=== PATIENT | female | born 1955 | race Caucasian/White ===

== ENCOUNTER 2017-07-05 12:11 | Emergency (ER) | payer MEDICARE, OTHER ==
[~2017-07-05 12:11] MED LIST: ASPIR 8181 MG PO; BENZONATATE100 MG PO; CLOPIDOGREL75 MG PO; LOSARTAN POTASS50 MG PO; MEGESTROL400 MG/10 PO; METOPROLOL SUCC25 MG PO; NEPHRO-VITE TA0.8 MG PO; SENSIPAR30 MG PO; WARFARIN SODIU2.5 MG PO; ZOLPIDEM TARTRAT5 MG PO
[2017-07-05] MEDS ORDERED: EPOGEN10000 UNIT INJ (12:38)
[2017-07-05] MEDS ORDERED: HECTOROL2 MCG/1 ML IV (12:39)
[2017-07-05] MEDS ORDERED: VENOFER50 MG/2.5 IV (12:40)
[2017-07-05] MEDS ORDERED: OMEPRAZOLE20 MG PO (12:42)
[2017-07-05] MEDS ORDERED: ACID CONTROL150 MG PO (12:43)
[2017-07-05] MEDS ORDERED: SENSIPAR30 MG PO (12:44)
--- NOTE | 2017-07-05 19:36 | EKG ---
[facility] [address] [place] [address] Signed Sinus rhythm with premature supraventricular complexes and with occasional premature ventricular complexes Nonspecific ST and T wave abnormality Abnormal ECG No previous ECGs available Confirmed by YUVAL ARROYO MD ([id number]) on 07/05/2017 7:36:36 PM Electronically Signed By: YUVAL ARROYO MD 07/05/17 1936 PATIENT NAME: MATI LEAVITT Electrocardiogram DATE OF : 51 PHYSICIAN: YUVAL ARROYO MD REPORT #: [id number] REPORT IS CONFIDENTIAL AND NOT TO BE RELEASED WITHOUT AUTHORIZATION
== END 2017-07-05 17:27 | disposition short-term general hospital (02) ==
LOC: ED 12:11
DX: E11.22 Type 2 diabetes mellitus with diabetic chronic kidney disease (principal); I50.9 Heart failure, unspecified; N18.9 Chronic kidney disease, unspecified; E78.5 Hyperlipidemia, unspecified; I25.2 Old myocardial infarction; Z95.0 Presence of cardiac pacemaker; Z99.2 Dependence on renal dialysis; Z90.49 Acquired absence of other specified parts of digestive tract; Z88.8 Allergy status to other drugs, medicaments and biological substances; Z88.2 Allergy status to sulfonamides; Z79.899 Other long term (current) drug therapy; Z79.01 Long term (current) use of anticoagulants
CPT/HCPCS: 36415; 71010; 80053; 83880; 84484; 85025; 93005; 93010; 99285

== ENCOUNTER 2017-09-25 09:25 | Emergency (ER) | payer MEDICARE, OTHER ==
[~2017-09-25] VITALS: Ht 160 cm; Wt 92.3 kg
--- OUTSIDE RECORDS SUMMARY | ~2017-09-25 | XMS | Clinical Summary ---
Demographics + + + | Address | [address] | | | [place] [address] | + + + | Home Phone | | + + + | Preferred Language | Unknown | + + + | Marital Status | | + + + | Pentecostalism Affiliation | CHR | + + + | Race | White | + + + | Ethnic Group | Not or | + + + Author + + + | Author | [facility] | + + + | Organization | [facility] | + + + | Address | Unknown | + + + | Phone | Unavailable | + + + Support + + +---------+ + | Name | Relationship | Address | Phone | + + +---------+ + | EDGARD ISBELL | ECON | Unknown | | + + +---------+ + Care Team Providers + +------+ + | Care Ward Supervisor Name | Role | Phone | + +------+ + PP | Unavailable | + +------+ + Source Comments [facility] is fully live on [facility] and [facility] Allergies + + + + + + | Active Allergy | Reactions | Severity | Noted | Comments | | | | | Date | | + + + + + + | Adhesive Tape | Rash | | 06/17/20 | Can't have | | | | | 13 | bandaids, but paper | | | | | | tape is ok | + + + + + + | Cefazolin | Dyspnea | High | 06/21/20 | | | | | | 13 | | + + + + + + | Irbesartan-Hydrochlo | Rash | | 06/17/20 | | | rothiazide | | | 13 | | + + + + + + | Captopril | Rash | | 11/07/19 | | | | | | 01 | | + + + + + + | Ciprofloxacin | Rash | | 11/07/19 | | | | | | 01 | | + + + + + + | Rofecoxib | Rash | | 05/30/20 | | | | | | 01 | | + + + + + + | Sulfamethoxazole-Tri | Pruritus, Rash | | 06/17/20 | | | methoprim | | | 13 | | + + + + + + | Sulfa (Sulfonamide | Rash | | 11/07/19 | | | Antibiotics) | | | 01 | | + + + + + + Current Medications + + +--------+---------+------+------+-------+ | Prescription | Sig. | Disp. | Refills | Star | End | Statu | | | | | | t | Date | s | | | | | | Date | | | + + +--------+---------+------+------+-------+ | metoprolol | Take 100 mg by mouth | | | | | Activ | | succinate 100 mg | once daily. | | | | | e | | oral tablet extended | | | | | | | | release 24 hr | | | | | | | + + +--------+---------+------+------+-------+ | doxazosin 1 mg | Take 1 mg by mouth | | | | | Activ | | oral tablet | once daily. | | | | | e | + + +--------+---------+------+------+-------+ | losartan 100 mg | Take 100 mg by mouth | | | | | Activ | | oral tablet | once daily. | | | | | e | + + +--------+---------+------+------+-------+ | amLODIPine 10 mg | Take 10 mg by mouth | | | | | Activ | | oral tablet | once daily. | | | | | e | + + +--------+---------+------+------+-------+ | aspirin EC | Take 81 mg by mouth | | | | | Activ | | (ECOTRIN LOW | once daily. | | | | | e | | STRENGTH) 81 mg oral | | | | | | | | tablet,delayed | | | | | | | | release (DR/EC) | | | | | | | + + +--------+---------+------+------+-------+ | Nut.Tx.Impaired | Take by mouth. Take | | | | | Activ | | Renal Fxn,Soy | 1 Can by mouth | | | | | e | | (NEPRO) 0.08-1.80 | Daily. | | | | | | | gram-kcal/mL oral | | | | | | | | Liquid | | | | | | | + + +--------+---------+------+------+-------+ | sevelamer | Take 1,600 mg by | | | | | Activ | | carbonate (RENVELA) | mouth three times | | | | | e | | 800 mg oral tablet | daily. Take with | | | | | | | | food | | | | | | + + +--------+---------+------+------+-------+ | omeprazole 20 mg | Take 20 mg by mouth | | | | | Activ | | oral capsule,delayed | once daily in the | | | | | e | | release(/EC) | morning. | | | | | | + + +--------+---------+------+------+-------+ | | Take 1 tablet by | 50 | 0 | 12/0 | | Activ | | HYDROcodone-acetamin | mouth every four | tablet | | 8/20 | | e | | ophen (VICODIN) | hours as needed. Not | | | 13 | | | | 5-500 mg oral tablet | to exceed 6 tablets | | | | | | | | per any 24 hour | | | | | | | | period. (Not to | | | | | | | | exceed 3250 mg of | | | | | | | | acetaminophen from | | | | | | | | all products per 24 | | | | | | | | hour period.) | | | | | | + + +--------+---------+------+------+-------+ Active Problems + + + | Problem | Noted Date | + + + | Hypotension | 06/21/2013 | + + + + + | Overview: ICD10 | + + Encounters +--------+ + + + + | Date | Type | Specialty | Care Team | Description | +--------+ + + + + | 07/05/ | Emergency | | | | | 2016 | | | | | +--------+ + + + + from Last 3 Months Social History + +-------+ +--------+------+ | Tobacco Use | Types | Packs/Day | Years | Date | | | | | Used | | + +-------+ +--------+------+ | Former Smoker | | | | | + +-------+ +--------+------+ + +---+---+---+ | Smokeless Tobacco: | | | | | Never Used | | | | + +---+---+---+ + + | Comments: quit in 1982 | + + + + + | Sex Assigned at | Date Recorded | | | | + + + | Not on file | | + + + Last Filed Vital Signs + + + + | Vital Sign | Reading | Time Taken | + + + + | Blood Pressure | 151/58 | 06/23/2013 2:48 PM PST | + + + + | Pulse | 77 | 06/23/2013 2:48 PM PST | + + + + | Temperature | 36.3 C (97.3 F) | 06/23/2013 2:48 PM PST | + + + + | Respiratory Rate | 16 | 06/23/2013 2:48 PM PST | + + + + | Oxygen Saturation | 98% | 06/23/2013 2:48 PM PST | + + + + | Inhaled Oxygen | - | - | | Concentration | | | + + + + | Weight | 91.9 kg (202 lb 9.6 | 06/22/2013 4:52 PM PST | | | oz) | | + + + + | Height | 162.6 cm (5' 4.02") | 06/21/2013 9:22 AM PST | + + + + | Body Mass Index | 34.76 | 06/22/2013 4:52 PM PST | + + + + Plan of Treatment + + + + + | Health Maintenance | Due Date | Last Done | Comments | + + + + + | INFLUENZA VACCINE | | | | | (FLU SHOT) | 7 | | | + + + + + Implants + +------+--------+ +--------+--------+--------+ | Implanted | Type | Area | Manufacture | Device | Expira | Model | | | | | r | | tion | / | | | | | | Identi | Date | Serial | | | | | | fier | | / Lot | + +------+--------+ +--------+--------+--------+ | Implant Mesh Graft Goretex | | Right: | [employer] | | 09/05/ | [id number] | | [facility] [id number] - | | Upper | ASSOCIATES | | 2016 | / | | [id number]: Qty: 1 on | | Arm | | | | [id number] | | 06/23/2013 by [place], | | | | | | 853 | | Preston Valencia MD | | | | | | | + +------+--------+ +--------+--------+--------+ Results Not on filefrom Last 3 Months
--- OUTSIDE RECORDS SUMMARY | ~2017-09-25 | XMS | Clinical Summary ---
Demographics + + + | Address | [address] | | | [place] [address] | + + + | Home Phone | | + + + | Preferred Language | Unknown | + + + | Marital Status | | + + + | Episcopalian Affiliation | EVANGELICAL | + + + | Race | White | + + + | Ethnic Group | Not or | + + + Author + + + | Author | [facility] | + + + | Organization | [facility] | + + + | Address | Unknown | + + + | Phone | Unavailable | + + + Support + + + + + | Name | Relationship | Address | Phone | + + + + + | EDGARD LEAVITT | ECON | [address] | | | | | [place] | | | | | [address] | | + + + + + | Agnieszka Heaton | ECON | Unknown | Unavailable | + + + + + Care Team Providers + +------+ + | Care Pe Electrical Engineer Name | Role | Phone | + +------+ + | Rick Aguilar MD | PP | | + +------+ + Allergies + + + + + + | Active Allergy | Reactions | Severity | Noted | Comments | | | | | Date | | + + + + + + | Adhesive | Other (See Comments) | Low | 04/27/20 | "BANDAIDS" | | | | | 11 | ERYTHEMA | + + + + + + | Alcohol | | | 04/08/20 | ALCOHOL SWABS-RASH | | | | | 11 | | + + + + + + | Captopril | Rash | Medium | 04/11/20 | | | | | | 17 | | + + + + + + | Cefazolin | Anaphylaxis | High | 01/31/20 | | | | | | 14 | | + + + + + + | Chlorhexidine | Rash | Medium | 02/15/20 | Alcavis Exsept | | Gluconate | | | 13 | Plus antiseptic | | | | | | swabstick | | | | | | Chlorhexidine/isopro | | | | | | pyl alcholol | + + + + + + | Ciprofloxacin | Rash | Medium | 04/11/20 | | | | | | 17 | | + + + + + + | Flurbiprofen Sodium | Anaphylaxis | High | 08/01/19 | | | | | | 14 | | + + + + + + | Hydrochlorothiazide | Rash | Low | 04/08/20 | | | | | | 11 | | + + + + + + | Irbesartan | Rash | Low | 04/08/20 | | | | | | 11 | | + + + + + + | Rofecoxib | Rash | Medium | 09/12/19 | | | | | | 12 | | + + + + + + | Sulfa (Sulfonamide | Rash | Low | 04/28/20 | | | Antibiotics) | | | 11 | | + + + + + + | Sulfamethoxazole-Tri | Rash | Medium | 09/12/19 | | | methoprim | | | 12 | | + + + + + + | Tape, Unspecified | Rash | Medium | 02/15/20 | Can't have | | | | | 13 | bandaids, but paper | | | | | | tape is ok. Tegaderm | | | | | | is ok | + + + + + + Current Medications + + +---------+---------+------+------+-------+ | Prescription | Sig. | Disp. | Refills | Star | End | Statu | | | | | | t | Date | s | | | | | | Date | | | + + +---------+---------+------+------+-------+ | FOLIC ACID/VITAMIN | Take by mouth | | | | | Activ | | B COMP W-C | Daily. | | | | | e | | (NEPHRO-ASHER ORAL) | | | | | | | + + +---------+---------+------+------+-------+ | Nut.Tx.Impaired | Take 1 Can by mouth | | | | | Activ | | Renal Fxn,Soy | Daily. | | | | | e | | (NEPRO) 0.08-1.80 | | | | | | | | gram-kcal/mL Liqd | | | | | | | + + +---------+---------+------+------+-------+ | Cholecalciferol, | Take 5,000 Units by | | | | | Activ | | Vitamin D3, (VITAMIN | mouth Daily. | | | | | e | | D) 2,000 unit Cap | | | | | | | + + +---------+---------+------+------+-------+ | amLODIPine | Take 5 mg by mouth | | | | | Activ | | (NORVASC) 10 mg | every evening | | | | | e | | tablet | | | | | | | + + +---------+---------+------+------+-------+ | calcium acetate | Take 667 mg by mouth | | | 02/2 | | Activ | | (PHOSLO) 667 mg | | | | 120 | | e | | capsule | | | | 17 | | | + + +---------+---------+------+------+-------+ | metoprolol | Take 25 mg by mouth | | | | | Activ | | tartrate (LOPRESSOR) | | | | | | e | | 25 mg tablet | | | | | | | + + +---------+---------+------+------+-------+ | B Complex-Vitamin | Take 1 tablet by | | | 02/2 | | Activ | | C-Folic Acid | mouth | | | 0/20 | | e | | (IVAN-ASHER) 0.8 mg | | | | 15 | | | | tablet | | | | | | | + + +---------+---------+------+------+-------+ | cinacalcet | Take 30 mg by mouth | | | | | Activ | | (SENSIPAR) 30 mg | | | | | | e | | tablet | | | | | | | + + +---------+---------+------+------+-------+ | ranitidine | Take 150 mg by mouth | | | | | Activ | | (ZANTAC) 150 mg | | | | | | e | | tablet | | | | | | | + + +---------+---------+------+------+-------+ | clopidogrel | Take 75 mg by mouth | | | | | Activ | | (PLAVIX) 75 mg | | | | | | e | | tablet | | | | | | | + + +---------+---------+------+------+-------+ | aspirin 81 mg EC | Take 81 mg by mouth | | | 02/14 | 02/14 | Activ | | tablet | | | | 03/05 | 03/05 | e | | | | | | 17 | 18 | | + + +---------+---------+------+------+-------+ | warfarin | Take 2.5 mg by mouth | | | | | Activ | | (COUMADIN) 2.5 mg | | | | | | e | | tablet | | | | | | | + + +---------+---------+------+------+-------+ | nitroglycerin | Place 0.4 mg under | | | | | Activ | | (NITROSTAT) 0.4 mg | the tongue | | | | | e | | SL tablet | | | | | | | + + +---------+---------+------+------+-------+ | megestrol (MEGACE) | | | | 10/1 | | Activ | | 400 mg/10 mL (40 | | | | 7/20 | | e | | mg/mL) suspension | | | | 17 | | | + + +---------+---------+------+------+-------+ | Aspirin 81 mg Tab | Take 81 mg by mouth | | | | / | Disco | | | Every Evening. | | | | 320 | ntinu | | | | | | | 18 | ed | + + +---------+---------+------+------+-------+ | SEVELAMER | Take 1 tablet by | | | | / | Disco | | CARBONATE (RENVELA | mouth 3 Times Daily | | | | 3/20 | ntinu | | ORAL) | (with Meals). | | | | 18 | ed | + + +---------+---------+------+------+-------+ | METOPROLOL | Take 75 mg by mouth | | | | 02/1 | Disco | | SUCCINATE ORAL | Four Times a Week. | | | | 3/20 | ntinu | | | NON-DIALYSIS DAYS | | | | 18 | ed | | | JAYY MONTELONGO SAT, SUN | | | | | | | | (takes in the | | | | | | | | morning) | | | | | | + + +---------+---------+------+------+-------+ | olmesartan | Take 40 mg by mouth | | | | 02/1 | Disco | | (BENICAR) 40 mg | Daily. | | | | 3/20 | ntinu | | tablet | | | | | 18 | ed | + + +---------+---------+------+------+-------+ | oxyCODONE | Take 1-2 tablets by | 20 | 0 | 12/0 | 02/1 | Disco | | (ROXICODONE) 5 mg | mouth Every 6 Hours | tablet | | 5/20 | 3/20 | ntinu | | immediate release | As Needed for Pain. | | | 11 | 18 | ed | | tablet | | | | | | | + + +---------+---------+------+------+-------+ | docusate sodium | Take 1 capsule by | 30 | 0 | 12/0 | 02/1 | Disco | | (COLACE) 100 mg | mouth 2 Times Daily. | capsule | | 12/03 | 10/03 | ntinu | | capsule | For constipation; | | | 11 | 18 | ed | | | hold if loose | | | | | | | | stools. | | | | | | + + +---------+---------+------+------+-------+ Active Problems + + + | Problem | Noted Date | + + + | ESRD (end stage renal disease) (HCC) | 04/28/2011 | + + + | HTN (hypertension) | 04/28/2011 | + + + | Gastroparesis | | + + + Encounters +--------+ + + + + | Date | Type | Specialty | Care Team | Description | +--------+ + + + + | 08/29/ | Office | | Sebastien Lilly | ESRD (end stage | | 2017 | Visit | | MD Kory Aparicio, | renal disease) ([facility]) | | | | | Don King MD | (Primary Dx) | +--------+ + + + + | 08/29/ | Ancillary | | Sebastien Lilly | ESRD (end stage | | 2017 | Procedure | | MD Markus | renal disease) ([facility]) | +--------+ + + + + | 08/29/ | Ancillary | | Sebastien Lilly | ESRD (end stage | | 2017 | Procedure | | MD Markus | renal disease) ([facility]) | +--------+ + + + + | 07/28/ | Ancillary | | Don Horn I, | ESRD (end stage | | 2017 | Orders | | | renal disease) ([facility]) | +--------+ + + + + | 07/27/ | Ancillary | | Sebastien Lilly | ESRD (end stage | | 2017 | Orders | | MD Markus | renal disease) ([facility]) | +--------+ + + + + from Last 3 Months Family History + + +------+ + | Medical History | Relation | Name | Comments | + + +------+ + | Stroke | Father | | | + + +------+ + | Cancer | Mother | | | + + +------+ + | Heart Disease | Mother | | | + + +------+ + | High Blood Pressure | Mother | | | + + +------+ + + +------+--------+ + | Relation | Name | Status | Comments | + +------+--------+ + | Father | | | | + +------+--------+ + | Mother | | | | + +------+--------+ + Social History + +-------+ +--------+ + | Tobacco Use | Types | Packs/Day | Years | Date | | | | | Used | | + +-------+ +--------+ + | Former Smoker | | 1 | 15 | Quit: 04/27/1983 | + +-------+ +--------+ + + + +---------+ + | Alcohol Use | Drinks/We | oz/Week | Comments | | | ek | | | + + +---------+ + | Yes | | | RARE USE 2 TIMES YEAR | + + +---------+ + + + + | Sex Assigned at | Date Recorded | | | | + + + | Not on file | | + + + Last Filed Vital Signs + + + + | Vital Sign | Reading | Time Taken | + + + + | Blood Pressure | 156/82 | 08/29/2017 2:59 PM PST | + + + + | Pulse | 84 | 08/29/2017 2:59 PM PST | + + + + | Temperature | 36.6 C (97.8 F) | 06/20/2011 5:50 PM PST | + + + + | Respiratory Rate | 16 | 06/20/2011 6:00 PM PST | + + + + | Oxygen Saturation | 97% | 08/29/2017 2:59 PM PST | + + + + | Inhaled Oxygen | - | - | | Concentration | | | + + + + | Weight | 83.5 kg (184 lb) | 08/29/2017 2:59 PM PST | + + + + | Height | 162.6 cm (5' 4") | 08/29/2017 2:59 PM PST | + + + + | Body Mass Index | 31.58 | 08/29/2017 2:59 PM PST | + + + + Plan of Treatment + + + + + | Health Maintenance | Due Date | Last Done | Comments | + + + + + | Hep C Ab Screening | | | | | | 4 | | | + + + + + | HIV Screening | | | | | | 9 | | | + + + + + | Tetanus | | | | | | 3 | | | + + + + + | Cervical Cancer | | | | | Screening | 5 | | | + + + + + | Breast Cancer | | | | | Screening | 4 | | | + + + + + | Colon Cancer | | | | | Screening | 4 | | | + + + + + | Zoster Vaccine | | | | | | 4 | | | + + + + + | Diabetes Mellitus | | 06/20/2011, 04/28/2011 | | | Screening | 4 | | | + + + + + | IMM Influenza (#1) | | | | | | 7 | | | + + + + + Results US VASCULAR VENOUS UPPER EXT BILATERAL (08/29/2017 3:15 PM) + + + | Specimen | Performing Laboratory | + + + | | XTERNAL ULTRASOUND PROCEDURES | + + + + + | Narrative | + + | Arm Vein Mapping Clinical Data: Arm vein mapping for fistula creation. | | Procedural Technique: Weinstein-scale imaging was obtained of bilateral upper arm basilic | | and cephalic veins. Findings: The axillary and subclavian veins appear occluded. | | Left Proximal basilic 2.3 mm Mid basilic 2.6 mm Distal basilic 2.5 mm | | Elbow 2.2mm Proximal cephalic 2.7 mm Mid cephalic 2.3 mm Distal cephalic 1.7 | | mm Elbow 1.5 mm Impression: 1. 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 2. The superficial veins of the left arm are small. | + + US VASCULAR UPPER ARTERIAL BILATERAL (08/29/2017 3:15 PM) + + + | Specimen | Performing Laboratory | + + + | | XTERNAL ULTRASOUND PROCEDURES | + + + + + | Narrative | + + | Procedure: Bilateral upper extremity arterial duplex. Indication: Pre-dialysis. | | Description: Duplex ultrasound was used to image the arteries of the above | | extremity. Findings: The waveforms are biphasic throughout. There are no significant | | velocity elevations. The brachial arteries measure 6 mm on the right and 5 on the | | left. The right radial measures 2.3 mm the left 1.4. Impression: No apparent | | stenosis with small radial arteries at the wrist. | + + from Last 3 Months Insurance + +--------+ +--------+ + + | Payer | Donyi | Subscriber | Type | Phone | Address | | | t Plan | ID | | | | | | / | | | | | | | Group | | | | | + +--------+ +--------+ + + | MEDICARE | MEDICA | [id number] | Medica | [phone] [address] | | | RE A & | | re | [phone] | [place] [phone] | | | B | | | | | + +--------+ +--------+ + + | [employer] [place] | MUTUAL | [id number] | Indemn | [phone] | [address] | | [place] | | | ity | [phone] | [place] | | | [place] | | | | [phone] | | | [place] | | | | | | | [place] | | | | | + +--------+ +--------+ + + + +--------+ +--------+ + + | Guarantor Name | Accoun | Relation to | Date | Phone | Billing Address | | | t Type | Patient | of | | | | | | | | | | + +--------+ +--------+ + + | AYESHA LEAVITT | Person | Self [birth year] Home: | [address] | | | al/Fam | | 4 | [phone] | [place] [address] | | | [place] | | | [phone] | | + +--------+ +--------+ + + Advance Directives Patient has advance directives. For more information, please contact:[facility] [place] [address]
--- OUTSIDE RECORDS SUMMARY | ~2017-09-25 | XMS | Clinical Summary ---
Demographics + + + | Address | [address] | | | [place] [address] | + + + | Home Phone | | + + + | Preferred Language | Unknown | + + + | Marital Status | | + + + | Congregational Affiliation | ORTHODOX | + + + | Race | [...] | EDGARD LEAVITT | ECON | [address] | | | | | [place] | | | | | [address] | | + + + + + | Agnieszka Heaton | ECON | Unknown | Unavailable | + + + + + Care Team Providers + +------+ + | Care Department Traffic Freight Router Name | Role | Phone | + [...] | MD Kory Aparicio, | renal disease) ([facility]) | | | | | Don King MD | (Primary Dx) | +--------+ + + + + | 08/29/ | Ancillary | | Sebastien Lilly | ESRD (end stage | | 2017 | Procedure | | MD Markus | renal disease) ([facility]) | +--------+ + + + + | 08/29/ | Ancillary | | Sebastien Lilly | ESRD (end stage | | 2017 | Procedure | | MD Markus | renal disease) ([facility]) | +--------+ + + + + | 07/28/ | Ancillary | | Don Horn I, | ESRD (end stage | | 2017 | Orders | | | renal disease) ([facility]) | +--------+ + + + + | 07/27/ | Ancillary | | Sebastien Lilly | ESRD (end stage | | 2017 | Orders | | MD Markus | renal disease) ([facility]) | +--------+ + + + + [...] + + | MEDICARE | MEDICA | [id number] | Medica | [phone] | [address] | | | RE A & | | re | [phone] | [place] [phone] | | | B | | | | | + +--------+ +--------+ + + | [employer] [place] | MUTUAL | [id number] | Indemn | [phone] | [address] | | [place] | | | ity | [phone] | [place] | | | [place] | | | | [phone] | | | [place] | | | | | | | [place] | | | | | + +--------+ [...] Self | [birth year] | Home: | [address] | | | al/Fam | | 4 | [phone] | [place] [address] | | | [place]uela | | | [phone] | | + +--------+ +--------+ + + Advance Directives Patient has advance directives. For more information, please contact:[employer] [place] [address]
--- OUTSIDE RECORDS SUMMARY | ~2017-09-25 | XMS | Encounter Summary ---
Demographics + + + | Address | [address] | | | [place] [address] | + + + | Home Phone | | + + + | Preferred Language | Unknown | + + + | Marital Status | | + + + | Yazidi Affiliation | LATTER-DAY | + + + | Race | [...] | EDGARD LEAVITT | ECON | [address] | | | | | [place] | | | | | [address] | | + + + + + | Agnieszka Heaton | ECON | Unknown | Unavailable | + + + + + Care Team Providers + +------+ + | Care Electrician Outside Name | Role | Phone | + +------+ + | Rick Aguilar MD | PCP | | + +------+ + Encounter Details +--------+ + + + + | Date | Type | Department | Care Team | Description | +--------+ + + + + | 07/28/ | Ancillary | [facility] | Don Horn I, | ESRD (end stage | | 2018 | Orders | [facility] | [address] | renal disease) (HCC) | | | | [address] | | | | | [address] | [place] [address] | | | | | [place], [place] | [phone] | | | | | [address] | | | | | | [phone] | | | +--------+ + + + + Social History + +-------+ +--------+ + [...] on file | | + + + as of this encounter Plan of Treatment Not on fileas of this encounter Results US VASCULAR VENOUS UPPER EXT BILATERAL [...] arteries at the wrist. | + + in this encounter Visit Diagnoses + + | Diagnosis | + + | ESRD (end stage renal disease) (HCC) | + + | End stage renal disease | + +"
--- OUTSIDE RECORDS SUMMARY | ~2017-09-25 | XMS | Encounter Summary ---
Demographics + + + | Address | [address] | | | [place] [address] | + + + | Home Phone | | + + + | Preferred Language | Unknown | + + + | Marital Status | | + + + | Congregational Affiliation | CHR | + + + | Race | White | + + + | Ethnic Group | Not or | + + + Author + + + | Author | [facility] | + + + | Organization | [facility] | + + + | Address | Unknown | + + + | Phone | Unavailable | + + + Support + + +---------+ + | Name | Relationship | Address | Phone | + + +---------+ + | EDGARD ISBELL | ECON | Unknown | | + + +---------+ + Care Team Providers + +------+ + | Care Barrel Rib Matting Machine Operator Name | Role | Phone | + +------+ + PCP | Unavailable | + +------+ + Reason for Visit + + + | Reason | Comments | + + + | Heart failure | | + + + | Other | needs diaylsis | + + + Encounter Details +--------+ + + + + | Date | Type | Department | Care Team | Description | +--------+ + + + + | 07/05/ | Emergency | [facility] Emergency | | | | 2016 | | Department [address] | | | | | | [address] | | | | | | [facility] | | | | | | [place] [address] | | | | | | [phone] | | | +--------+ + + + + Social History + +-------+ +--------+------+ | Tobacco [...] + + + as of this encounter Medications at Time of Discharge + + +--------+---------+ + + | Medication | Sig. | Disp. | Refills | Start | End Date | | | | | | Date | | + + +--------+---------+ + + | amLODIPine 10 mg | Take 10 mg by mouth | | | | | | oral tablet | once daily. | | | | | + + +--------+---------+ + + | aspirin EC | Take 81 mg by mouth | | | | | | (ECOTRIN LOW | once daily. | | | | | | STRENGTH) 81 mg oral | | | | | | | tablet,delayed | | | | | | | release (DR/EC) | | | | | | + + +--------+---------+ + + | doxazosin 1 mg | Take 1 mg by mouth | | | | | | oral tablet | once daily. | | | | | + + +--------+---------+ + + | | Take 1 tablet by | 50 | 0 | /03/05 | | | HYDROcodone-acetamin | mouth every four | tablet | | 13 | | | ophen (VICODIN) | hours as needed. Not | | | | | | 5-500 mg oral [...] hour period.) | | | | | + + +--------+---------+ + + | losartan 100 mg | Take 100 mg by mouth | | | | | | oral tablet | once daily. | | | | | + + +--------+---------+ + + | metoprolol | Take 100 mg by mouth | | | | | | succinate 100 mg | once daily. | | | | | | oral tablet extended | | | | | | | release 24 hr | | | | | | + + +--------+---------+ + + | Nut.Tx.Impaired | Take by mouth. Take | | | | | | Renal Fxn,Soy | 1 Can by mouth | | | | | | (NEPRO) 0.08-1.80 | Daily. | | | | | | gram-kcal/mL oral | | | | | | | Liquid | | | | | | + + +--------+---------+ + + | omeprazole 20 mg | Take 20 mg by mouth | | | | | | oral capsule,delayed | once daily in the | | | | | | release(DR/EC) | morning. | | | | | + + +--------+---------+ + + | sevelamer | Take 1,600 mg by | | | | | | carbonate (RENVELA) | mouth three times | | | | | | 800 mg oral tablet | daily. Take with | | | | | | | food | | | | | + + +--------+---------+ + + as of this encounter Plan of Treatment Not on fileas of this encounter Visit Diagnoses Not on filein this encounter"
--- OUTSIDE RECORDS SUMMARY | ~2017-09-25 | XMS | Encounter Summary ---
Demographics + + + | Address | [address] | | | [place] [address] | + + + | Home Phone | | + + + | Preferred Language | Unknown | + + + | Marital Status | | + + + | Adventist Affiliation | RESTORATIONIST | + + + | Race | [...] | EDGARD LEAVITT | ECON | [address] [facility] | | | | | [place] | | | | | [address] | | + + + + + | Agnieszka Heaton | ECON | Unknown | Unavailable | + + + + + Care Team Providers + +------+ + | Care Systems Programmer Analyst Name | Role | Phone | + +------+ + | Rick Aguilar MD | PCP | | + +------+ + Encounter Details +--------+ + + + + | Date | Type | Department | Care Team | Description | +--------+ + + + + | 07/27/ | Ancillary | [facility] | Sebastien Lilly | ESRD (end stage | | 2018 | Orders | Group Vascular | MD [address] | renal disease) (HCC) | | | | Surgery Augustine Mckeon | [address] [place], [place] | | | | | [address] [address] | [id number] | | | | | [place], [place] | | | | | | [address] | | | | | | [phone] | | | +--------+ + + + [...] on fileas of this encounter Visit Diagnoses + + | Diagnosis | + + | ESRD (end stage renal disease) (HCC) | + + | End stage renal disease | + +"
--- OUTSIDE RECORDS SUMMARY | ~2017-09-25 | XMS | Encounter Summary ---
Demographics + + + | Address | [address] | | | [place] [address] | + + + | Home Phone | | + + + | Preferred Language | Unknown | + + + | Marital Status | | + + + | Alevism Affiliation | CHR | + + + | Race | White | + + + | Ethnic Group | Not or | + + + Author + + + | Author | [facility] | + + + | Organization | [facility] | + + + | Address | Unknown | + + + | Phone | Unavailable | + + + Support + + +---------+ + | Name | Relationship | Address | Phone | + + +---------+ + | EDGARD ISBELL | ECON | Unknown | | + + +---------+ + Care Team Providers + +------+ + | Care Supervisor Shed Workers Name | Role | Phone | + [...] + + | 07/05/ | Emergency | [facility] | | | | 2016 | | Department [address] | | | | | | [address] | | | | | | [facility] | | | | | | [place] [address] | | | | | | [phone] | | | +--------+ + + + [...]
--- OUTSIDE RECORDS SUMMARY | ~2017-09-25 | XMS | Encounter Summary ---
Demographics + + + | Address | [address] | | | [place] [address] | + + + | Home Phone | | + + + | Preferred Language | Unknown | + + + | Marital Status | | + + + | Quaker Affiliation | MORMON | + + + | Race | [...] | EDGARD LEAVITT | ECON | [address] | | | | | [place] | | | | | [address] | | + + + + + | Agnieszka Heaton | ECON | Unknown | Unavailable | + + + + + Care Team Providers + +------+ + | Care Administrative Specialist Name | Role | Phone | + +------+ + | Rick Aguilar MD | PCP | | + +------+ + Encounter Details +--------+ + + + + | Date | Type | Department | Care Team | Description | +--------+ + + + + | 08/29/ | Ancillary | [facility] | Sebastien Lilly | ESRD (end stage | | 2018 | Procedure | Group Vascular | MD Mike Apar[address] | renal disease) (HCC) | | | | Surgery Augustine Mckeon | [address] [place], [place] | | | | | [address] [address] | [id number] | | | | | [place], [place] | | | | | | [address] | | | | | | [phone] | | | +--------+ + + + [...] fileas of this encounter Results US VASCULAR UPPER ARTERIAL BILATERAL (08/29/2017 3:15 [...] + | ESRD (end stage renal disease) ([facility]) | + + | End stage renal disease | + +"
--- OUTSIDE RECORDS SUMMARY | ~2017-09-25 | XMS | Encounter Summary ---
Demographics + + + | Address | [address] | | | [place] [address] | + + + | Home Phone | | + + + | Preferred Language | Unknown | + + + | Marital Status | | + + + | Protestant Affiliation | ANABAPTIST | + + + | Race | [...] | EDGARD LEAVITT | ECON | [address] [facility] | | | | | [place] | | | | | [address] | | + + + + + | Agnieszka Heaton | ECON | Unknown | Unavailable | + + + + + Care Team Providers + +------+ + | Care Helicopter Repairer Name | Role | Phone | + [...] | | Surgery Augustine Mckeon | [address] [place], [place] | | | | | [address] [address] | [id number] | | | | | [place], [place] | | | | | | [address] | | | | | | [phone] | | | +--------+ + + + [...]
--- OUTSIDE RECORDS SUMMARY | ~2017-09-25 | XMS | Encounter Summary ---
Demographics + + + | Address | [address] | | | [place] [address] | + + + | Home Phone | | + + + | Preferred Language | Unknown | + + + | Marital Status | | + + + | Mormonism Affiliation | UATSDIN | + + + | Race | [...] [place] | | | | | [address] | | + + + + + | Agnieszka Heaton | ECON | Unknown | Unavailable | + + + + + Care Team Providers + +------+ + | Care Director Of Child Welfare Services Name | Role | Phone | + [...] | | Surgery Augustine Mckeon | [address] [place], [place] | | | | | [address] [address] | [id number] | | | | | [place], [place] | | | | | | [address] | | | | | | [phone] | | | +--------+ + + + [...] left arm are small. | + + in this encounter Visit Diagnoses + + | Diagnosis | + + | ESRD (end stage renal disease) ([facility]) | + + | End stage renal disease | + +"
--- OUTSIDE RECORDS SUMMARY | ~2017-09-25 | XMS | Encounter Summary ---
Demographics + + + | Address | [address] | | | [place] [address] | + + + | Home Phone | | + + + | Preferred Language | Unknown | + + + | Marital Status | | + + + | Confucianism Affiliation | CHURCH | + + + | Race | [...] | EDGARD LEAVITT | ECON | [address] [facility] | | | | | [place] | | | | | [address] | | + + + + + | Agnieszka Heaton | ECON | Unknown | Unavailable | + + + + + Care Team Providers + +------+ + | Care Production Expert Name | Role | Phone | + +------+ + | Rick Aguilar MD | PCP | | + +------+ + Reason for Visit + + + | Reason | Comments | + + + | New Patient | ESRD | + + + Consult, Test & Treat (Routine) + +--------+ + + + + | Status | Reason | Specialty | Diagnoses / | Referred By | Referred To | | | | | Procedures | Contact | Contact | + +--------+ + + + + | Authorized | | Vascular | Diagnoses | Jeff, | Kory, | | | | Surgery | End stage | Rick Reynolds MD | Don King MD | | | | | renal | [address] | | | | | disease | [address] | [address] | | | | | | [place], | [place], [place] | | | | | | [place] [address] | [address] | | | | | | Phone: | Phone: | | | | | | [phone] | [phone] | | | | | | Fax: | Fax: | | | | | | [phone] | [phone] | + +--------+ + + + + Encounter Details +--------+---------+ + + + | Date | Type | Department | Care Team | Description | +--------+---------+ + + + | 08/29/ | Office | [facility] | Sebastien Lilly | ESRD (end stage | | 2018 | Visit | Group Vascular Ibrahima Aparicio MD [address] | renal disease) (HCC) | | | | Surgery [address] | [address] [place], [place] | (Primary Dx) | | | | [address] | [address] | | | | | [facility] [place] | | | | | | [address] | Don Horn I, | | | | | [phone] | MD [address] | | | | | | [address] | | | | | | [place] [address] | | | | | | [phone] | | +--------+---------+ + + + Social History + +-------+ [...] + + + as of this encounter Last Filed Vital Signs + + + + | Vital Sign | Reading | Time Taken | + + + + | Blood Pressure | 156/82 | 08/29/2017 2:59 PM PST | + + + + | Pulse | 84 | 08/29/2017 2:59 PM PST | + + + + | Temperature | - | - | + + + + | Respiratory Rate | - | - | + + + + | Oxygen [...] PM PST | + + + + in this encounter Progress Notes Don Horn MD - 08/29/2017 3:15 PM PSTFormatting of this note may be different from the original. Subjective: Chief Complaint: Chief Complaint Patient presents with New Patient ESRD History of Present Illness: I was asked by Rick Aguilar to evaluate Ayesha, a 61 y.o. female who presents to us with ES RD with history of multiple access surgeries requiring evaluation for a new dialysis access. She has renal failure secondary to diabetes and hypertension. Patient is right handed.. Sima valle has been on HD for 9 years. She has an extensive history. She has had right forearm acce ss and right upper arm access, with the right upper arm access the most recent lasting for r oughly four years. These have all since thrombosed. She has also had a left forearm fistul a and what appears to be a left upper arm graft which have also both failed. She is current ly being dialyzed through a right subclavian tunneled catheter. 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 She had a pacemaker inserted on the left in the subclavian vein this past March. Due to her complicated access she presents for further evaluation. 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 insertion Atherosclerotic risk factors include: Hypertension, Hyperlipidemia, Diabetes Vascular problem list Specialty Problems None Past medical history Past Medical History: Diagnosis Date Anemia Atrioventricular block, third degree (HCC) Blood transfusion 2000 CAD (coronary artery disease) Cardiac pacemaker Chronic kidney disease Diabetes mellitus (HCC) INSULIN IN PAST 2000 NOWDIET CONTROLLED Dialysis INITIATED 07/25 [facility] [place] CURRENTLY DIALYZING LCW PERMACATH 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 Gastroparesis Heart murmur "SLIGHT" High blood pressure Hx MRSA infection 2000; Resolved 2010 Requirements for deisolation met 04/28/2011 Hypertension Integumentary disease dry skin Musculoskeletal disease LEFT HIP FX Old myocardial infarction Osteoarthritis HX OF LEFT HIP FX S/P SURGERY PVD (peripheral vascular disease) ([facility]) Reduced mobility uses walker & wheelchair S/P drug eluting coronary stent placement Severe aortic stenosis Sleep apnea Weakness LLE D/T HIP Surgical history Past Surgical History: Procedure Laterality Date CHOLECYSTECTOMY 2000 FRACTURE SURGERY LEFT HIP S/P SURGERY WITH HARDWARE SUBSEQUENT STAPH AND HARDWARE REMOVED OTHER SURGICAL HISTORY LCW PERMACATH FOR DIALYSIS VASCULAR SURGERY DIALYSIS ACCESS SURGERIES-LEFT BLAISE FISTULA/LFA AND NASIM PTFE GRAFT -ALL FAILED VASCULAR SURGERY STENT PLACEMENT 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 Family history Family History Problem Relation Age of Onset Cancer Mother Heart Disease Mother High Blood Pressure Mother Stroke Father Social history Social History Social History Marital status: Spouse name: N/A Number of children: N/A Years of education: N/A Social History Main Topics Smoking status: Former Smoker Packs/day: 1.00 Years: 15.00 Quit date: 04/27/1983 Smokeless tobacco: Not on file Alcohol use Yes Comment: RARE USE 2 TIMES YEAR Drug use: No Sexual activity: Not on file Other Topics Concern Not on file Social History Narrative No narrative on file Current medications Current Outpatient Prescriptions Medication Sig Dispense Refill amLODIPine (NORVASC) 10 mg tablet Take 5 mg by mouth every evening aspirin 81 mg EC tablet Take 81 mg by mouth B Complex-Vitamin C-Folic Acid (IVAN-ASHER) 0.8 mg tablet Take 1 tablet by mouth calcium acetate (PHOSLO) 667 mg capsule Take 667 mg by mouth Cholecalciferol, Vitamin D3, (VITAMIN D) 2,000 unit Cap Take 5,000 Units by mouth Daily . cinacalcet (SENSIPAR) 30 mg tablet Take 30 mg by mouth clopidogrel (PLAVIX) 75 mg tablet Take 75 mg by mouth FOLIC ACID/VITAMIN B COMP W-C (NEPHRO-ASHER ORAL) Take by mouth Daily. megestrol (MEGACE) 400 mg/10 mL (40 mg/mL) suspension metoprolol tartrate (LOPRESSOR) 25 mg tablet Take 25 mg by mouth nitroglycerin (NITROSTAT) 0.[address] 0.4 mg under the tongue Nut.Tx.Impaired Renal Fxn,Soy (NEPRO) 0.08-1.80 gram-kcal/mL Liqd Take 1 Can by mouth D aily. ranitidine (ZANTAC) 150 mg tablet Take 150 mg by mouth warfarin (COUMADIN) 2.5 mg tablet Take 2.5 mg by mouth No current facility-administered medications for this visit. Prior to encounter medications Current Outpatient Prescriptions on File Prior to Visit Medication Sig Dispense Refill amLODIPine (NORVASC) 10 mg tablet Take 5 mg by mouth every evening aspirin 81 mg EC tablet Take 81 mg by mouth B Complex-Vitamin C-Folic Acid (IVAN-ASHER) 0.8 mg tablet Take 1 tablet by mouth calcium acetate (PHOSLO) 667 mg capsule Take 667 mg by mouth Cholecalciferol, Vitamin D3, (VITAMIN D) 2,000 unit Cap Take 5,000 Units by mouth Daily . cinacalcet (SENSIPAR) 30 mg tablet Take 30 mg by mouth clopidogrel (PLAVIX) 75 mg tablet Take 75 mg by mouth FOLIC ACID/VITAMIN B COMP W-C (NEPHRO-ASHER ORAL) Take by mouth Daily. megestrol (MEGACE) 400 mg/10 mL (40 mg/mL) suspension metoprolol tartrate (LOPRESSOR) 25 mg tablet Take 25 mg by mouth nitroglycerin (NITROSTAT) 0.[address] 0.4 mg under the tongue Nut.Tx.Impaired Renal Fxn,Soy (NEPRO) 0.08-1.80 gram-kcal/mL Liqd Take 1 Can by mouth D aily. ranitidine (ZANTAC) 150 mg tablet Take 150 mg by mouth warfarin (COUMADIN) 2.5 mg tablet Take 2.5 mg by mouth No current facility-administered medications on file prior to visit. Allergies Numerous, reveiwed Review of Systems A ten point review of systems is negative Objective: Vital Signs: Blood pressure 156/82, pulse 84, height 162.6 cm (5' 4"), weight 83.5 kg (184 lb), SpO2 97 %. Physical Examination: General: Alert, and oriented times 3 in no apparent distress. HEENT: Head normocephalic, atraumatic. Hearing intact. Nasopharynx and oropharynx within n ormal limits. Pupils equally round and reactive to light; conjunctivae clear. Extraocular mu scles intact. Neck: Supple; no thyromegaly. There are some venous collaterals present over the right ne ck Respiratory: Clear to auscultation. Heart: Regular rate and rhythm, systolic ejection murmur appreciated Abdomen: Soft, nontender, not distended, no masses. No hepatosplenomegaly. Bowel sounds p ositive. Lymph: No cervical, axillary or groin lymphadenopathy. Musculoskeletal: Extremities warm, without edema; no clubbing, cyanosis. Normal gait. Rang e of motion normal in all limbs. Skin: Warm, dry; normal skin turgor; color normal, no rash. Neurologic: Cranial nerves intact II- XII. Reflexes are within normal limits. No sensory d eficit. Vascular: Palpable bilateral carotid pulses without bruit; radial pulses are 1+ Diagnostic Data: Duplex ultrasound of the arms shows thrombosis of the right brachiocephalic, axillary, and subclavian veins. On the left there are patent but small cephalic and basilic veins in the upper arm with patent axillary vein. Assessment: Ayesha is a 61 y.o. female with ESRD on Hd. She has had multiple access procedures in the past which have all thrombosed. She is currently dialyzed through a right chest wall tunnel ed catheter but has central vein thrombosis on the right precluding access. On the left she has a patent axillary vein but has a pacemaker in the subclavian vein. In addition she has multiple medical comorbidities that make her very high risk most notably severe aortic sten osis. Plan: At this point the best option for her would be a left brachial to axillary or axillary to a xillary graft. That being said we will need to discuss with her cardiologists to see if the re is anything we need to do to better optimize her for surgery. If we do proceed we would have her hold her coumadin for 5 days prior to surgery and her plavix for 7 days. I saw and examined this patient. I discussed the relevant issues with the resident and toge ther we formulated the plan. Christos Horn M.D. in this encounter Plan of Treatment Not on fileas of this encounter Visit Diagnoses + + | Diagnosis | + + | ESRD (end stage renal disease) ([facility]) - Primary | + + | End stage renal disease | + +
--- OUTSIDE RECORDS SUMMARY | ~2017-09-25 | XMS | Encounter Summary ---
Demographics + + + | Address | [address] | | | [place] [address] | + + + | Home Phone | | + + + | Preferred Language | Unknown | + + + | Marital Status | | + + + | Spiritism Affiliation | JEHOVAH'S WITNESS | + + + | Race | [...] | EDGARD LEAVITT | ECON | [address] [facility] | | | | | [place] | | | | | [address] | | + + + + + | Agnieszka Heaton | ECON | Unknown | Unavailable | + + + + + Care Team Providers + +------+ + | Care Mobile Lab Technician Name | Role | Phone | + [...] | | Surgery Augustine Mckeon | [address] [place], [place] | | | | | [address] [address] | [address] | | | | | [place], [place] | | | | | | [address] | | | | | | [phone] | | | +--------+ + + + [...] + | ESRD (end stage renal disease) ([facility]) | + + | End stage renal disease | + +"
--- OUTSIDE RECORDS SUMMARY | ~2017-09-25 | XMS | Encounter Summary ---
Demographics + + + | Address | [address] | | | [place] [address] | + + + | Home Phone | | + + + | Preferred Language | Unknown | + + + | Marital Status | | + + + | Jewish Affiliation | TEMPLE | + + + | Race | [...] | EDGARD LEAVITT | ECON | [address] [facility] | | | | | [place] | | | | | [address] | | + + + + + | Agnieszka Heaton | ECON | Unknown | Unavailable | + + + + + Care Team Providers + +------+ + | Care Topline Beading Machine Tender Name | Role | Phone | + [...] | [address] | [place] [address] | | | | | [place], [place] | [phone] | | | | | [address] | | | | | | [phone] | | | +--------+ + + + [...]
--- OUTSIDE RECORDS SUMMARY | ~2017-09-25 | XMS | Encounter Summary ---
Demographics + + + | Address | [address] | | | [place] [address] | + + + | Home Phone | | + + + | Preferred Language | Unknown | + + + | Marital Status | | + + + | Temple Affiliation | BUDDHISM | + + + | Race | [...] | EDGARD LEAVITT | ECON | [address] [facility] | | | | | [place] | | | | | [address] | | + + + + + | Agnieszka Heaton | ECON | Unknown | Unavailable | + + + + + Care Team Providers + +------+ + | Care Stain Wiper Name | Role | Phone | + [...] [address] | | | | | | [place], | [place], [place] | | | | | | [place] [address] | [address] | | | | | | Phone: | Phone: | | | | | | [phone] | [phone] | | | | | | Fax: | Fax: | | | | | | [phone] | [phone] | + +--------+ + + + + Encounter Details +--------+---------+ + + + | Date | Type | Department | Care Team | Description | +--------+---------+ + + + | 08/29/ | Office | [facility] | Sebastien Lilly | ESRD (end stage | | 2018 | Visit | Group Vascular Ibrahima Aparicio MD [address] | renal disease) (HCC) | | | | Surgery [address] | [address] [place], [place] | (Primary Dx) | | | | [address] | [address] | | | | | 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 Family history Family History [...] + | ESRD (end stage renal disease) ([facility]) - Primary | + + | End stage renal disease | + +
--- OUTSIDE RECORDS SUMMARY | ~2017-09-25 | XMS | Clinical Summary ---
Demographics + + + | Address | [address] | | | [place] [address] | + + + | Home Phone | | + + + | Preferred Language | Unknown | + + + | Marital Status | | + + + | Jewish Affiliation | CHR | + + + [...] Team Providers + +------+ + | Care Clay Temperer Name | Role | Phone | + +------+ + PP | Unavailable | + +------+ + Source Comments SHAISTA is fully live on both [facility] and [facility] In[facility] Allergies + + + + + + [...] | [facility] | | 09/05/ | [id number] | | [facility] [id number] - | | Upper | [facility]OC[facility]ATES | | 2016 | / | | [id number]: Qty: 1 on | | Arm | | | | /[id number] | | 06/23/2013 by [place], | | | | | | 853 | | Preston Valencia MD | | | | | | | + +------+--------+ +--------+--------+--------+ Results Not on filefrom Last 3 Months
--- OUTSIDE RECORDS SUMMARY | ~2017-09-25 | XMS | Encounter Summary ---
Demographics + + + | Address | [address] | | | [place] [address] | + + + | Home Phone | | + + + | Preferred Language | Unknown | + + + | Marital Status | | + + + | Episcopalian Affiliation | FAITH | + + + | Race | [...] | EDGARD LEAVITT | ECON | [address] [facility] | | | | | [place] | | | | | [address] | | + + + + + | Agnieszka Heaton | ECON | Unknown | Unavailable | + + + + + Care Team Providers + +------+ + | Care Lamp Tester And Inspector Name | Role | Phone | + [...] | | Surgery Augustine Mckeon | [address] [place], [place] | | | | | [address] [address] | [id number] | | | | | [place], [place] | | | | | | [address] | | | | | | [phone] | | | +--------+ + + + [...] ESRD (end stage renal disease) ([facility]) | + + | End stage renal disease | + +"
[~2017-09-25 09:25] MED LIST changes: +ACID CONTROL150 MG PO; +EPOGEN10000 UNIT INJ; +HECTOROL2 MCG/1 ML IV; +OMEPRAZOLE20 MG PO; +VENOFER50 MG/2.5 IV
--- NOTE | 2017-09-25 18:50 | EKG ---
[facility] [address] [facility] [place] [address] Signed Wide QRS rhythm with occasional and consecutive premature ventricular complexes Nonspecific intraventricular block Abnormal ECG When compared with ECG of 05-JUL-2017 12:45, Wide QRS rhythm has replaced Sinus rhythm Confirmed by FARZANEH MCCARTY MD ([id number]) on 09/25/2017 6:50:20 PM Electronically Signed By: FARZANEH MCCARTY MD 09/25/17 1850 PATIENT NAME: MATI LEAVITT Electrocardiogram DATE OF : 51 PHYSICIAN: FARZANEH MCCARTY MD REPORT #: [id number] REPORT IS CONFIDENTIAL AND NOT TO BE RELEASED WITHOUT AUTHORIZATION
[2017-09-26] MEDS ORDERED: AMLODIPINE BESY10 MG PO (11:03)
== END 2017-09-25 11:55 | disposition home or self-care (01) ==
LOC: ED 09:25
DX: J90 Pleural effusion, not elsewhere classified (principal); E11.22 Type 2 diabetes mellitus with diabetic chronic kidney disease; N18.6 End stage renal disease; Z99.2 Dependence on renal dialysis; E78.5 Hyperlipidemia, unspecified; I25.2 Old myocardial infarction; Z88.8 Allergy status to other drugs, medicaments and biological substances; Z88.2 Allergy status to sulfonamides; Z88.1 Allergy status to other antibiotic agents; Z79.899 Other long term (current) drug therapy; Z79.01 Long term (current) use of anticoagulants
CPT/HCPCS: 36415; 71045; 80053; 83880; 84484; 85025; 85610; 93005; 93010; 99284

== ENCOUNTER 2017-11-27 11:01 | Emergency (ER) | payer MEDICARE, OTHER ==
[~2017-11-27] VITALS: Ht 160 cm; Wt 92.1 kg
[~2017-11-27 11:01] MED LIST changes: +AMLODIPINE BESY10 MG PO
--- NOTE | 2017-11-27 19:05 | EKG ---
[facility] [address] [facility] [place] [address] Signed Sinus rhythm with occasional premature ventricular complexes Low voltage QRS ST \T\ T wave abnormality, consider lateral ischemia Abnormal ECG When compared with ECG of 25-SEP-2017 10:15, Sinus rhythm has replaced Wide QRS rhythm Confirmed by FARZANEH MCCARTY MD ([id number]) on 11/27/2017 7:05:38 PM Electronically Signed By: FARZANEH MCCARTY MD 11/27/17 1905 PATIENT NAME: MATI LEAVITT Electrocardiogram DATE OF : 51 PHYSICIAN: FARZANEH MCCARTY MD REPORT #: [id number] REPORT IS CONFIDENTIAL AND NOT TO BE RELEASED WITHOUT AUTHORIZATION
== END 2017-11-27 12:30 | disposition home or self-care (01) ==
LOC: ED 11:01
DX: R06.89 Other abnormalities of breathing (principal); E11.22 Type 2 diabetes mellitus with diabetic chronic kidney disease; N18.6 End stage renal disease; I50.9 Heart failure, unspecified; Z99.2 Dependence on renal dialysis; Z87.891 Personal history of nicotine dependence; Z88.1 Allergy status to other antibiotic agents; Z88.2 Allergy status to sulfonamides; Z88.8 Allergy status to other drugs, medicaments and biological substances; Z79.899 Other long term (current) drug therapy; Z79.01 Long term (current) use of anticoagulants
CPT/HCPCS: 71045; 80053; 82550; 82553; 82803; 83874; 84484; 85025; 85610; 85730; 93005; 93010; 94660; 99284

== ENCOUNTER 2018-08-16 11:59 | Emergency (ER) | payer MEDICARE, OTHER ==
[~2018-08-16] VITALS: Ht 160 cm; Wt 92.1 kg
[~2018-08-16 11:59] MED LIST changes: +AMLODIPINE BES2.5 MG PO
--- OUTSIDE RECORDS SUMMARY | 2018-08-16 12:02 | XMS ---
PreManage Notification: MATI LEAVITT Security Bait Tier Events No recent Security Events currently on file CRITERIA MET - [facility] - 2 Visits in 30 Days CARE PROVIDERS GUZMAN ELDER Primary Care Current PHONE: Unknown Ginger has no Care Guidelines for this patient. EVioleta VISIT COUNT (12 MO.) [address] TOTAL 4 NOTE: Visits indicate total known visits. ED/UCC VISIT TRACKING (12 MO.) 08/16/2018 12:00 [facility] [place] TYPE: Emergency COMPLAINT: - EXTREMITY PAIN 07/30/2018 09:50 [facility] TYPE: Emergency DIAGNOSES: - Peripheral vascular disease, unspecified - Numbness - End stage renal disease - Unspecified atherosclerosis of [place] arteries of extremities, unspecified extremity - Circulatory Problem 11/27/2017 11:02 [facility] [place] TYPE: Emergency COMPLAINT: - SOB DIAGNOSES: - Type 2 diabetes mellitus with diabetic chronic kidney disease - Allergy status to sulfonamides status - terminal operations supervisor (current) use of anticoagulants - End stage renal disease - Shortness of breath - Other abnormalities of breathing - Allergy status to other drugs, medicaments and biological substances status - Other terminal operations supervisor (current) drug therapy - Dependence on renal dialysis - Personal history of nicotine dependence - Heart failure, unspecified - Allergy status to other antibiotic agents status 09/25/2017 09:25 [facility] [place] TYPE: Emergency COMPLAINT: - LOW OXYGEN LEVELS DIAGNOSES: - nursing home (current) use of anticoagulants - Pleural effusion, not elsewhere classified - Dependence on renal dialysis - Allergy status to other drugs, medicaments and biological substances status - Shortness of breath - End stage renal disease - Allergy status to other antibiotic agents status - Hyperlipidemia, unspecified - Type 2 diabetes mellitus with diabetic chronic kidney disease - Old myocardial infarction - Other terminal operations supervisor (current) drug therapy - Allergy status to sulfonamides status INPATIENT VISIT TRACKING (12 MO.) 07/30/2018 09:50 [facility] TYPE: General Medicine DIAGNOSES: - Peripheral vascular disease, unspecified - Dependence on renal dialysis - Unspecified atherosclerosis of [place] arteries of extremities, unspecified extremity - Thrombosis due to vascular prosthetic devices, implants and grafts, initial encounter - End stage renal disease 05/03/2018 09:34 [facility]ia [facility] TYPE: Cardiology DIAGNOSES: - Dependence on renal dialysis - Nonrheumatic aortic (valve) stenosis - End stage renal disease 10/18/2017 10:38 [facility] TYPE: Surgery DIAGNOSES: - Dependence on renal dialysis - End stage renal disease [email or web address]
== END 2018-08-16 19:10 | disposition home or self-care (01) ==
LOC: ED 11:59
DX: I73.9 Peripheral vascular disease, unspecified (principal); I25.9 Chronic ischemic heart disease, unspecified; E78.5 Hyperlipidemia, unspecified; E11.22 Type 2 diabetes mellitus with diabetic chronic kidney disease; N18.9 Chronic kidney disease, unspecified; I25.2 Old myocardial infarction; Z95.0 Presence of cardiac pacemaker; Z87.891 Personal history of nicotine dependence; Z95.5 Presence of coronary angioplasty implant and graft; Z88.2 Allergy status to sulfonamides; Z88.8 Allergy status to other drugs, medicaments and biological substances; Z91.09 Other allergy status, other than to drugs and biological substances; Z88.1 Allergy status to other antibiotic agents; Z79.01 Long term (current) use of anticoagulants; Z79.899 Other long term (current) drug therapy
CPT/HCPCS: 73706; 80053; 85025; 85610; 99284-25; Q9967

== ENCOUNTER 2018-08-20 10:58 | Emergency (ER) | payer MEDICARE, OTHER ==
[~2018-08-20] VITALS: Ht 160 cm; Wt 92.1 kg
--- OUTSIDE RECORDS SUMMARY | 2018-08-20 11:02 | XMS ---
PreManage Notification: MATI LEAVITT Security Bead Cutter Events No recent Security Events currently on file CRITERIA MET - [facility] - Has Care Guidelines - [facility] - 2 Visits in 30 Days CARE PROVIDERS PILI BRIZUELA Hospitalist 08/17/2018-Current PHONE: Unknown GUZMAN ELDER Primary Care Current PHONE: Unknown Ginger has no Care Guidelines for this patient. Care History Medical/Surgical 08/17/2018 [facility] - Patient is currently established with [facility]. If patient is seen in the ED during business hours. Please contact CHWs at [facility]. Care Recommendation: This patient has had 5 or more Emergency Department visits in the last 12 months.\T\nbsp; Patient requires education on the scope and purpose of the ED as an acute care provider not a Primary Care Provider and should not be utilized for chronic conditions.\T\nbsp; These are guidelines and the provider should exercise clinical judgment when providing care. E.D. VISIT COUNT (12 MO.) 1 [facility] 4 [facility] TOTAL 5 NOTE: Visits indicate total known visits. ED/UCC VISIT TRACKING (12 MO.) 08/20/2018 10:59 [facility] [place] TYPE: Emergency COMPLAINT: - BILAT FOOT PAIN NON INJURY 08/16/2018 12:00 [facility] [place] TYPE: Emergency COMPLAINT: - EXTREMITY PAIN DIAGNOSES: - Allergy status to other antibiotic agents status - Chronic ischemic heart disease, unspecified - Chronic kidney disease, unspecified - Presence of coronary angioplasty implant and graft - Type 2 diabetes mellitus with diabetic chronic kidney disease - Other allergy status, other than to drugs and biological substances - intermodal dispatcher (current) use of anticoagulants - Allergy status to other drugs, medicaments and biological substances status - Peripheral vascular disease, unspecified - Pain in left foot - Presence of cardiac pacemaker - Personal history of nicotine dependence - Other jail (current) drug therapy - Old myocardial infarction - Hyperlipidemia, unspecified - Allergy status to sulfonamides status 07/30/2018 09:50 [facility] TYPE: Emergency DIAGNOSES: - Peripheral vascular disease, unspecified - Numbness - End stage renal disease - Unspecified atherosclerosis of [place] arteries of extremities, unspecified extremity - Circulatory Problem 11/27/2017 11:02 [facility] [place] TYPE: Emergency COMPLAINT: - SOB DIAGNOSES: - Type 2 diabetes mellitus with diabetic chronic kidney disease - Allergy status to sulfonamides status - intermodal dispatcher (current) use of anticoagulants - End stage renal disease - Shortness of breath - Other abnormalities of breathing - Allergy status to other drugs, medicaments and biological substances status - Other jail (current) drug therapy - Dependence on renal dialysis - Personal history of nicotine dependence - Heart failure, unspecified - Allergy status to other antibiotic agents status 09/25/2017 09:25 [facility] TYPE: Emergency COMPLAINT: - LOW OXYGEN LEVELS DIAGNOSES: - senior care (current) use of anticoagulants - Pleural effusion, not elsewhere classified - Dependence on renal dialysis - Allergy status to other drugs, medicaments and biological substances status - Shortness of breath - End stage renal disease - Allergy status to other antibiotic agents status - Hyperlipidemia, unspecified - Type 2 diabetes mellitus with diabetic chronic kidney disease - Old myocardial infarction - Other terminal makeup operator (current) drug therapy - Allergy status to sulfonamides status INPATIENT VISIT TRACKING (12 MO.) 07/30/2018 09[facility] TYPE: General Medicine DIAGNOSES: - Peripheral vascular disease, unspecified - Dependence on renal dialysis - Unspecified atherosclerosis of [place] arteries of extremities, unspecified extremity - Thrombosis due to vascular prosthetic devices, implants and grafts, initial encounter - End stage renal disease 05/03/2018 09:34 [facility] TYPE: Cardiology DIAGNOSES: - Dependence on renal dialysis - Nonrheumatic aortic (valve) stenosis - End stage renal disease 10/18/2017 10:38 [facility] TYPE: Surgery DIAGNOSES: - Dependence on renal dialysis - End stage renal disease [id number]
== END 2018-08-20 13:55 | disposition home or self-care (01) ==
LOC: ED 10:58
DX: I99.8 Other disorder of circulatory system (principal); E78.5 Hyperlipidemia, unspecified; E11.22 Type 2 diabetes mellitus with diabetic chronic kidney disease; N18.2 Chronic kidney disease, stage 2 (mild); I25.2 Old myocardial infarction; Z99.2 Dependence on renal dialysis; Z95.0 Presence of cardiac pacemaker; I25.9 Chronic ischemic heart disease, unspecified; Z87.891 Personal history of nicotine dependence; Z88.2 Allergy status to sulfonamides; Z88.1 Allergy status to other antibiotic agents; Z88.8 Allergy status to other drugs, medicaments and biological substances; Z91.09 Other allergy status, other than to drugs and biological substances; Z79.01 Long term (current) use of anticoagulants; Z79.899 Other long term (current) drug therapy
CPT/HCPCS: 36415; 80048; 85025; 85610; 85730; 99283

== ENCOUNTER 2018-09-06 14:12 | Emergency (ER) | payer MEDICARE, OTHER ==
[~2018-09-06] VITALS: Ht 160 cm; Wt 92.1 kg
--- OUTSIDE RECORDS SUMMARY | 2018-09-06 14:16 | XMS ---
PreManage Notification: MATI LEAVITT Security Nail Professional Events No recent Security Events currently on file CRITERIA MET - [facility] - Has Care Guidelines - PDMP - [facility] - 2 Visits in 30 Days CARE PROVIDERS PILI BRIZUELA Hospitalist 08/17/2018-Current PHONE: Unknown Rick Aguilar Primary Care Current PHONE: [phone] Ginger has no Care Guidelines for this patient. Care History Medical/Surgical 08/17/2018 [facility] - Patient is currently established with [facility]. If patient is seen in the ED during business hours. Please contact CHWs at [facility]. Care Recommendation: This patient has had 5 [...] care. E.D. VISIT COUNT (12 MO.) 1 [place] [address] [facility] TOTAL 6 NOTE: Visits indicate total known visits. ED/UCC VISIT TRACKING (12 MO.) 09/06/2018 14:13 [facility] [place] TYPE: Emergency COMPLAINT: - L FOOT INFECTION 08/20/2018 10:59 [facility] [place] TYPE: Emergency COMPLAINT: - BILAT FOOT PAIN NON INJURY DIAGNOSES: - Old myocardial infarction - Allergy status to other drugs, medicaments and biological substances status - Other snf (current) drug therapy - Other disorder of circulatory system - Dependence on renal dialysis - Chronic ischemic heart disease, unspecified - Type 2 diabetes mellitus with diabetic chronic kidney disease - Hyperlipidemia, unspecified - Allergy status to sulfonamides status - Allergy status to other antibiotic agents status - custodial (current) use of anticoagulants - Personal history of nicotine dependence - Chronic kidney disease, stage 2 (mild) - Other allergy status, other than to drugs and biological substances - Presence of cardiac pacemaker 08/16/2018 12:00 [facility] TYPE: Emergency COMPLAINT: - EXTREMITY PAIN DIAGNOSES: - Allergy status to other antibiotic agents status - Chronic ischemic heart disease, unspecified - Chronic kidney disease, unspecified - Presence of coronary angioplasty implant and graft - Type 2 diabetes mellitus with diabetic chronic kidney disease - Other allergy status, other than to drugs and biological substances - it web development consultant (current) use of anticoagulants - Allergy status to other drugs, medicaments and biological substances status - Peripheral vascular disease, unspecified - Pain in left foot - Presence of cardiac pacemaker - Personal history of nicotine dependence - Other graphic art designer (current) drug therapy - Old myocardial infarction - Hyperlipidemia, unspecified - Allergy status to sulfonamides status 07/30/2018 09:50 [facility] TYPE: Emergency DIAGNOSES: - Peripheral vascular disease, unspecified - Numbness - End stage renal disease - Unspecified atherosclerosis of [place] arteries of extremities, unspecified extremity - Circulatory Problem 11/27/2017 11:02 [facility] [place] TYPE: Emergency COMPLAINT: - SOB DIAGNOSES: - Type 2 diabetes mellitus with diabetic chronic kidney disease - Allergy status to sulfonamides status - custodial (current) use of anticoagulants - End stage renal disease - Shortness of breath - Other abnormalities of breathing - Allergy status to other drugs, medicaments and biological substances status - Other snf (current) drug therapy - Dependence on renal dialysis - Personal history of nicotine dependence - Heart failure, unspecified - Allergy status to other antibiotic agents status 09/25/2017 09:25 [facility] [place] TYPE: Emergency COMPLAINT: - LOW OXYGEN LEVELS DIAGNOSES: - custodial (current) use of anticoagulants - Pleural effusion, not elsewhere classified - Dependence on renal dialysis - Allergy status to other drugs, medicaments and biological substances status - Shortness of breath - End stage renal disease - Allergy status to other antibiotic agents status - Hyperlipidemia, unspecified - Type 2 diabetes mellitus with diabetic chronic kidney disease - Old myocardial infarction - Other graphic art designer (current) drug therapy - Allergy status to sulfonamides status INPATIENT VISIT TRACKING (12 MO.) [facility] DIAGNOSES: - End stage renal disease - Paroxysmal atrial fibrillation - Presence of prosthetic heart valve - Atherosclerotic heart disease of [place] coronary artery without angina pectoris - Anemia in chronic kidney disease - Nonrheumatic aortic (valve) stenosis - Dependence on renal dialysis - Other cardiomyopathies - Acute on chronic systolic (congestive) heart failure - Peripheral vascular disease, unspecified - Hypokalemia 07/30/2018 09:50 [facility] DIAGNOSES: - Peripheral vascular disease, unspecified - Dependence on renal dialysis - Unspecified atherosclerosis of [place] arteries of extremities, unspecified extremity - Anemia in chronic kidney disease - Other specified personal risk factors, not elsewhere classified - Thrombosis due to vascular prosthetic devices, implants and grafts, initial encounter - End stage renal disease - Other disorders of plasma-protein metabolism, not elsewhere classified 05/03/2018 09:34 [facility] DIAGNOSES: - Dependence on renal dialysis - Nonrheumatic aortic (valve) stenosis - End stage renal disease 10/18/2017 10:38 [facility] [place] TYPE: Surgery DIAGNOSES: - Dependence on renal dialysis - End stage renal disease [email or web address]
[2018-09-06] MEDS ORDERED: LIPITOR20 MG PO (14:57)
[2018-09-06] MEDS ORDERED: CALCIUM ACETAT667 M1 NG (15:56)
[2018-09-06] MEDS ORDERED: VITAMIN D5000 UNI1 PO (15:57)
[2018-09-06] MEDS ORDERED: COREG6.25 MG PO (15:57)
[2018-09-06] MEDS ORDERED: METOPROLOL SUCC25 MG PO (15:58)
[2018-09-06] MEDS ORDERED: ACID CONTROLLER20 MG PO (15:58)
[2018-09-06] MEDS ORDERED: NITROSTAT0.4 MG SL (16:01)
[2018-09-06] MEDS ORDERED: OXYCODONE HCL5 M1 PO (16:02)
[2018-09-06] MEDS ORDERED: NEPHRO-VITE TA0.8 MG PO (16:06)
== END 2018-09-06 19:00 | disposition short-term general hospital (02) ==
LOC: ED 14:12
DX: E11.52 Type 2 diabetes mellitus with diabetic peripheral angiopathy with gangrene (principal); I96 Gangrene, not elsewhere classified; I25.9 Chronic ischemic heart disease, unspecified; E78.5 Hyperlipidemia, unspecified; E11.22 Type 2 diabetes mellitus with diabetic chronic kidney disease; N18.9 Chronic kidney disease, unspecified; I25.2 Old myocardial infarction; Z95.0 Presence of cardiac pacemaker; Z99.2 Dependence on renal dialysis; Z87.891 Personal history of nicotine dependence; Z88.2 Allergy status to sulfonamides; Z91.09 Other allergy status, other than to drugs and biological substances; Z88.1 Allergy status to other antibiotic agents; Z88.8 Allergy status to other drugs, medicaments and biological substances; Z79.899 Other long term (current) drug therapy
CPT/HCPCS: 36415; 80053; 85025; 85610; 99284